=== PATIENT | male | born 1975 | race African-American/Black ===

== ENCOUNTER 2020-07-19 22:29 | Emergency (ER) | payer OTHER, SELFPAY ==
--- NOTE | ~2020-07-19 | XR_ITS ---
EXAMINATION: XR knee LT 3V DATE: 07/19/2020 23:25 INDICATION: Left knee pain TECHNIQUE: Three views of the left knee were obtained. COMPARISON: None. FINDINGS: Alignment is normal. No fracture or osteochondral lesion. 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 No joint effusion/synovitis. Soft tissues are unremarkable. IMPRESSION: 1. No acute osseous abnormality. Reviewed, dictated and finalized at location A.
[2020-07-19 22:30] VITALS: BP 148/87; PULSE 74; RESP 20; TEMP 36.6; O2SAT 100
[2020-07-19] MEDS: IBUPROFEN 400 MG TABLET 800 MG PO (23:20)
--- NOTE | 2020-07-19 23:43 | ED_ITS ---
HPI - Extremity Injury (Lower) General Chief Complaint: Extremity Injury, Lower Stated Complaint: L KNEE PAIN Time Seen by Provider: 07/19/20 23:02 History of Present Illness HPI Narrative: Patient is a 45-year-old male who presents ER with left lateral knee discomfort. Started today while he was driving his car. [place] it over the hamstring laterally. Normal range of motion. Pain improved now. No swelling. No trauma. No chest pain/shortness of breath/lower extremity edema. No h emoptysis. No hormonal replacement or known cancer. Related Data Allergies Allergy/AdvReac Type Severity Reaction Status Date / Time No Known Allergies Allergy Verified 07/19/20 22:32 Review of Systems Cardiovascular: Cardiovascular: Denies chest pain and Denies rapid heart rate Respiratory: Respiratory: Denies cough and Denies dyspnea Musculoskeletal: Musculoskeletal: Denies arthralgias, Denies joint swelling and Reports muscle cramps PMFSH Past Medical History Medical History (Updated 07/19/20 @ 23:47 by Marlon De Paz MD) BPH (benign prostatic hyperplasia) Surgical History Surgical History (Updated 07/19/20 @ 23:44 by Marlon De Paz MD) No pertinent past surgical history Family History Family History (Updated 06/06/19 @ 14:32 by DOCTOR UNKNOWN) Mother Hypertension Sibling Hypertension Father Family history unknown Social History Social History Smoking status: Never smoker Alcohol intake: never Exam Narrative: Exam Narrative: GENERAL: Well-appearing, well-nourished, and in no acute distress. HEAD: Normocephalic, atraumatic. CHEST: Clear to auscultation. No respiratory distress. HEART: Regular rate and rhythm. No murmur heard. Normal peripheral pulses. EXTREMITIES: Normal range of motion. No edema. Ligamentously intact and stressing the left knee. SKIN: Warm, dry, no rash. NEURO: Alert and oriented x3. Course Course Emergency Course: Informed results. Discharge home. Patient reports he has been lifting weights more recently and may have caused some muscle injury. Vital Signs Vital signs: Vital Signs Temperature 97.8 F 07/19/20 22:30 Pulse Rate 74 07/19/20 22:30 Respiratory Rate 20 07/19/20 22:30 Blood Pressure 148/87 H 07/19/20 22:30 Pulse Oximetry 100 07/19/20 22:30 Temperature 97.8 F 07/19/20 22:30 Pulse Rate 74 07/19/20 22:30 Respiratory Rate 20 07/19/20 22:30 Blood Pressure 148/87 H 07/19/20 22:30 Pulse Oximetry 100 07/19/20 22:30 MDM - Extremity Injury (Lower) Imaging Data My impression: XR left knee: No acute process. Discharge Plan Discharge Clinical Impression: Cramp in muscle Patient Disposition: Home, Self-Care Condition: Stable Instructions: Muscle Cramp (ED) Additional Instructions: Return the ER if you have chest pain or shortness of breath, you lose consciousness, you cannot keep down food or water, you have additional concerns. Prescriptions: New ibuprofen 800 mg tablet 800 mg PO TID Qty: 20 RF: 0 Follow-up/Referrals: Hermilo Gil MD [Primary Care Provider] - 1 Week
[2020-07-19 23:59] VITALS: BP 124/74; PULSE 88; RESP 19; TEMP 36.3; O2SAT 100
== END 2020-07-20 | disposition home or self-care (01) ==
PROVIDERS: Emergency Provider Emergency Medicine; PCP Emergency Medicine
DX: R25.2 Cramp and spasm (principal); N40.0 Benign prostatic hyperplasia without lower urinary tract symptoms
CPT/HCPCS: 73562; 99283; A9270

== ENCOUNTER 2020-11-10 21:20 | Emergency (ER) | payer OTHER, SELFPAY ==
--- NOTE | ~2020-11-10 | XR_ITS ---
EXAMINATION: XR chest 1V portable EXAM DATE: 11/10/2020 21:48 INDICATION: Midsternal chest tightness and pressure, symptoms 2 days. TECHNIQUE: Portable AP frontal chest x-ray was obtained. There is no prior study for comparison. FINDINGS: The lungs are clear. There are no pleural effusions. The cardiomediastinal silhouette is within normal limits. There is no pneumothorax suspected. The bones and soft tissues are unremarkab le. IMPRESSION: No acute cardiopulmonary findings. Reviewed, dictated and finalized at location A. D REPRESENTATIVE
--- NOTE | 2020-11-10 21:23 | ECG_ITS ---
Measurements Intervals [place] Rate: 70 P: 26 [place]: 188 QRS: 72 QRSD: 93 T: 29 QT: 383 QTc: 416 Interpretive Statements SINUS RHYTHM BASELINE WANDER- I, II, V4-V6 NORMAL ECG Electronically Signed On 11-11-2020 7:12:20 [employer]ICER by Timothy Evans D.O.
[2020-11-10 21:24] VITALS: BP 159/92; PULSE 84; RESP 16; O2SAT 100
--- NOTE | 2020-11-10 21:31 | ED.GENADULT ---
HPI - General Adult General Chief complaint: Chest Pain Stated complaint: chest tightness Time Seen by Provider: 11/10/20 21:22 Source: RN notes reviewed History of Present Illness HPI narrative: Patient presents to emergency department from home for chest pain. Patient states that for the past 2 days been having intermittent chest pain pain is located midsternal chest and does not radiate described as a burning sensation last approximately 5 to 10 minutes he states he had approximately 3 episodes a day for the past 2 days he denies any shortness of breath with the symptoms denies any fevers or chills abdominal pain nausea vomiting diarrhea or any other symptoms denies any previous cardiac history. Patient denies any pain at this time Related Data Allergies Allergy/AdvReac Type Severity Reaction Status Date / Time No Known Allergies Allergy Verified 11/10/20 21:34 Review of Systems Review of Systems: Narrative: Gen.: Denies fevers or chills ENT: Denies congestion Respiratory: Denies shortness of breath or cough CV: HPI GI: Denies abdominal pain nausea, emesis or diarrhea Musculoskeletal: Denies back pain or muscle pain Neuro: Denies numbness, tingling, weakness or focal weakness Skin: Denies rash Except as documented, all other systems reviewed and negative PMFSH Past Medical History Medical History BPH (benign prostatic hyperplasia) Surgical History Surgical History (Updated 07/19/20 @ 23:44 by Marlon De Paz MD) No pertinent past surgical history Family History Family History (Updated 06/06/19 @ 14:32 by DOCTOR UNKNOWN) Mother Hypertension Sibling Hypertension Father Family history unknown Social History Social History Smoking status: Never smoker Alcohol intake: never Gender identity (if verbalized by the patient): Male Exam Narrative: Exam Narrative: APPEARANCE: No acute distress, nontoxic, resting in bed EYES: EOMI HEENT: Normocephalic, atraumatic, OMM RESPIRATORY: No respiratory distress Clear to auscultation bilaterally with no rhonchi wheezing or rales. CARDIOVASCULAR: Regular rate and rhythm without murmurs rubs or gallops. ABDOMINAL: Soft, nontender, nondistended, no rebound or guarding MUSCULOSKELETAl: Moves all extremities. No clubbing, cyanosis or edema. NEURO: Awake and alert. Following commands, speech normal, no focal deficits SKIN:: Warm, dry. No rashes lesions or abrasions PSYCHIATRIC: Normal affect/mood, Course Course Emergency Course: Patient meets PERC rule criteria and no further testing needs to be performed for pulmonary embolism. All discussed with Dr. Alfaro presentation work-up agrees with plan for discharge after serial troponin and follow-up as an outpatient Discussed with patient results of workup and diagnosis. Discussed need for follow-up with primary care, proper use of medication, and reasons to return to the emergency department. Patient understands and agrees to current treatment plan Vital Signs Vital signs: Vital Signs Pulse Rate 84 11/10/20 21:24 Respiratory Rate 16 11/10/20 21:24 Blood Pressure 159/92 H 11/10/20 21:24 Pulse Oximetry 100 11/10/20 21:24 Pulse Rate 84 11/10/20 21:33 Respiratory Rate 16 11/10/20 21:24 Blood Pressure 159/92 H 11/10/20 21:24 Pulse Oximetry 100 11/10/20 21:24 Medical Decision Making MDM Narrative Medical decision making narrative: Patient's EKGs and labs are without significant high risk changes. Cardiac risk factors reviewed. Patient is felt likely low risk for ACS and reasonable for further risk stratification testing as an outpatient. Pain was not sudden or maximal in onset without tearing or ripping quality. No other signs of symptoms suggest aortic dissection. A low-risk Wells criteria is noted, PE is felt to be unlikely. No pneumonia seen on evaluation today. Patient is f
[2020-11-10 21:33] VITALS: PULSE 84
[2020-11-10 21:43] LABS: Basophils Percent Auto 0.8 % (0.2-1.2); Eosinophils Percent Auto 0.8 % (0-4.4); Hematocrit 51.6 % (42.0-52.0); Hemoglobin 17.6 g/dL (14.0-18.0); Immature Granulocyte Absolute 0.01 K/mm3 (0.00-0.031); Immature Granulocyte Percent A 0.2 % (0-0.5); Lymphocytes Absolute Auto 2.82 K/mm3 (0.9-3.2); Lymphocytes Percent Auto 57.7 % (18.3-44.2); Mean Corpuscular HGB Conc 34.1 g/dl (32-36); Mean Corpuscular Hemoglobin 31.3 pg (26-34); Mean Corpuscular Volume 91.7 fl (80-100); Mean Platelet Volume 11.4 fl (7.4-10.4); Monocytes Absolute Auto 0.4 K/mm3 (0.1-0.6); Neutrophils Absolute Auto 1.6 K/mm3 (1.3-6.7); Neutrophils Percent Auto 32.5 % (45.5-73.1); Platelet Count Result 214 k/mm3 (150-375); Red Blood Count 5.63 M/mm3 (4.6-6.20); Red Cell Distribution Width 12.7 % (11.5-14.5); White Blood Count 4.9 K/mm3 (4.5-10.0)
--- NOTE | 2020-11-10 21:46 | PC.NURSE ---
Notified pts nephew and CHRIS Abdullahi of her arrival to the ED. He stated that his was currently on the way to this facility.
[2020-11-10 21:51] LABS: Prothrombin Time 13.3 Seconds (11.1-14.7)
[2020-11-10 21:52] LABS: Partial Thromboplastin Time 26.9 SECONDS (22.3-36.8)
[2020-11-10] MEDS: ASPIRIN 81 MG CHEWABLE TABLET 324 MG PO (22:00)
[2020-11-10 22:44] LABS: Anion Gap 6 mmol/L (8-16); Blood Urea Nitrogen 25 mg/dL (9-20); Calcium 9.2 mg/dL (8.4-10.2); Carbon Dioxide 28 mmol/L (22-30); Chloride 103 mmol/L (98-107); Estimated CRCL calculation 80 ml/min; Estimated Glomerular Filt Rate > 60; Glucose 104 mg/dL (75-110); Sodium 137 mmol/L (137-145)
[2020-11-10 22:57] LABS: Troponin I < 0.012 ng/mL (0.000-0.034)
[2020-11-11 01:03] LABS: Troponin I < 0.012 ng/mL (0.000-0.034)
[2020-11-11 01:17] VITALS: BP 147/87; PULSE 63; RESP 15; TEMP 36.8; O2SAT 97
== END 2020-11-11 01:18 | disposition home or self-care (01) ==
PROVIDERS: Emergency Provider Emergency Medicine; PCP Emergency Medicine
DX: R07.2 Precordial pain (principal); N40.0 Benign prostatic hyperplasia without lower urinary tract symptoms
CPT/HCPCS: 36415; 71045; 80048; 84484; 85025; 85610; 85730; 93005; 99284; A9270